=== PATIENT | female | born 1965 | race Caucasian/White ===

== ENCOUNTER 2017-01-15 20:19 | Emergency (ER) | payer OTHER ==
[2017-01-15] MEDS: 0.9 % SODIUM CHLORIDE 1,000 ML IV ONE (20:35)
[2017-01-15] MEDS: ONDANSETRON HCL/PF 4 MG/ 2ML VIAL IVP ONE (20:36)
[2017-01-15 20:47] LABS: BASOPHILS % 0.8 (0.0-1.5); EOSINOPHILS % 2.9 % (0.0-6.8); MEAN CORPUSCULAR HEMOGLOBIN 31.6 pg (28.0-34.0); MEAN CORPUSCULAR VOLUME 88.9 fl (80.0-100.0); MONOCYTES % 4.9 % (0.0-11.0); NEUTROPHILS # 4.4 # k/uL (1.4-7.7)
[2017-01-15 20:48] VITALS: BP 105/77
[2017-01-15 20:57] LABS: eGFR (African) > 60; eGFR (Non-African) > 60
--- NOTE | 2017-01-15 23:39 | ED Physician Documentation ---
Syncope/Near Syncope - HISTORIAN Historian: patient - HPI Stated Complaint: Dizziness/Nausea Chief Complaint: Syncope Additional Information: fixing super got sweaty diaphoretic felt warm and wierd stood front air conditioner felt worse sat diwb nausea no emesis around 1900hrs came to the ed sig pos orthostatics Witnessed: Yes Position at Time of Episode: sitting, standing Symptoms Prior to Episode: light-headed, nausea Character of Events(s): denies: lost consciousness, became unresponsive Symptoms after Event: denies: confused after event, incontinent of urine Location of Injury: none Associated Symptoms: none - ROS CONST: denies: recent illness MS/SKIN/LYMPH: denies: joint pain, leg swelling, rash NEURO/PSYCH: anxiety. 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 IBS htn lo thryoid) PE Risk Factors: hypertension Surgeries/Procedures: none Allergies/Adverse Reactions: Allergies Allergy/AdvReac Type Severity Reaction Status Date / Time No Known Allergies Allergy Verified 01/15/17 20:38 Home Medications: Ambulatory Orders Medication Instructions Recorded buPROPion [Wellbutrin Sr] 150 mg PO DAILY 05/21/13 Albuterol Sulfate [Ventolin Hfa] 2 puff IH BID PRN 07/10/15 Sertraline HCl [Zoloft] 100 mg PO DAILY 07/10/15 Fluticasone Propionate [Flovent 1 puff IH Q12 03/23/16 Hfa] Levothyroxine Sodium [Synthroid] 75 mcg PO 07 03/23/16 Medroxyprogesterone Acetate 400 mg IM DIRECTED 03/23/16 [Depo-Provera] Pantoprazole Sodium [Protonix] 40 mg PO 0700 03/23/16 Ranitidine HCl 300 mg PO D 03/23/16 Ropinirole HCl [Requip Xl] 4 mg PO HS 03/23/16 traZODone HCL [Desyrel] 50 mg PO HS 03/23/16 - SOCIAL HX Smoking History: less than 1 pack/day Alcohol Use: none Drug Use: none - FAMILY HX Family History: denies: sudden cardiac - VITAL SIGNS Vital Signs: Vital Signs Temp Pulse Resp BP Pulse Ox 98.1 F 75 18 121/75 98 01/15/17 20:20 01/15/17 22:00 01/15/17 20:20 01/15/17 20:25 01/15/17 22:00 - REVIEWED ASSESSMENTS Nursing Assessment Reviewed: Yes Vitals Reviewed: Yes ED Results Lab/Radiology - Lab Results Lab Results: Lab Results 01/15/17 01/15/17 20:33 20:33 WBC 7.70 K/ul K/ul (4.00-12.00) RBC 4.74 M/ul M/ul (3.90-5.20) Hgb 15.0 g/dL g/dL (12.0-16.0) Hct 42.2 % % (34.5-46.5) MCV 88.9 fl fl (80.0-100.0) MCH 31.6 pg pg (28.0-34.0) MCHC 35.5 g/dL g/dL (30.0-36.0) RDW 13.4 % % (11.3-14.3) Plt Count 202 K/mm3 K/mm3 (130-400) Neut % (Auto) 56.7 % % (39.0-79.0) Lymph % (Auto) 33.0 % % (16.0-50.0) [place] % (Auto) 4.9 % % (0.0-11.0) Eos % (Auto) 2.9 % % (0.0-6.8) Baso % (Auto) 0.8 (0.0-1.5) Neut # (Auto) 4.4 # k/uL # k/uL (1.4-7.7) Lymph # (Auto) 2.6 # k/uL # k/uL (0.6-4.0) [place] # (Auto) 0.4 # k/uL # k/uL (0.0-0.9) Eos # (Auto) 0.2 # k/uL # k/uL (0.0-0.6) Baso # (Auto) 0.1 # k/uL # k/uL (0.0-0.5) Reactive Lymphs % 1.7 % % (0.0-5.0) Reactive Lymphs # 0.1 # k/uL # k/uL (0.0-0.8) Sodium 137 mmol/L mmol/L (136-145) Potassium 3.9 mmol/L mmol/L (3.5-5.0) Chloride 105 mmol/L mmol/L (98-110) Carbon Dioxide 25 mmol/L mmol/L (20-32) BUN 8 mg/dL L mg/dL (10-26) Creatinine 0.9 mg/dL mg/dL (0.4-1.5) Estimated Creat Clear 130 Est GFR ( Amer) > 60 (60 - ) Est GFR (Non-Af Amer) > 60 (60 - ) Glucose 95 mg/dL mg/dL (70-99) Calcium 10.2 mg/dL mg/dL (8.5-10.5) Total Bilirubin 0.4 mg/dL mg/dL (0.2-1.2) AST 17 U/L U/L (0-41) ALT 17 U/L U/L (0-45) Alkaline Phosphatase 79 U/L U/L (46-116) Total Protein 8.0 g/dL g/dL (6.0-8.5) Albumin 4.8 g/dL g/dL (3.0-5.5) - Orders Orders: ED Orders Category Date Time Status Continuous EKG monitoring Q1H Care 01/15/17 20:34 Active Continuous Pulse Oximetry Q1H Care 01/15/17 20:34 Active Orthostatics NOW Care 01/15/17 20:[address] IV Lock 1T Care 01/15/17 20:33 Active CBC/PLATELET/DIFF Routine Lab 01/15/17 20:33 Completed CMP Routine Lab 01/15/17 20:33 Completed 0.9 % Sodium Chloride [Normal Saline] 1,000 ml Med 01/15/17 20:33 Discontinued IV Q1H Chem Sticks Med 01/15/17 20:33 Discontinued 1 each MC NOW ONE Ondansetron HCl/Pf [Zofran 4 mg/2 ml] Med 01/15/17 20:33 Discontinued 4 mg IVP NOW ONE EKG WITH COMPARISON Stat Ther 01/15/17 20:33 Ordered Syncope Physical Exam - Physical Exam General Appearance: mild distress, moderate distress EENT: nml eye inspection Neck/Back: neck supple, non-tender Respiratory: no resp distress, chest non-tender, breath sounds normal CVS: reg rate & rhythm, heart sounds normal Abdomen: non-tender, no distention Skin: diaphoresis Extremities: normal range of motion, no evidence of injury, no edema - Neuro/Psych Higher Functions: alert, oriented x3, no evidence of acute CVA, mood/affect nml Sensorimotor: nml motor response, nml sensory response (positive orhtostatics- see nurse note) Discharge Clincal Impression: dehycration near syncope Referrals: Primary Doctor,No [Primary Care Provider] - 2 Days Home Medications: Ambulatory Orders buPROPion [Wellbutrin Sr] 150 mg PO DAILY 05/21/13 Albuterol Sulfate [Ventolin Hfa] 2 puff IH BID PRN 07/10/15 Sertraline HCl [Zoloft] 100 mg PO DAILY 07/10/15 Fluticasone Propionate [Flovent Hfa] 1 puff IH Q12 03/23/16 Levothyroxine Sodium [Synthroid] 75 mcg PO 07 03/23/16 Medroxyprogesterone Acetate [Depo-Provera] 400 mg IM DIRECTED 03/23/16 Pantoprazole Sodium [Protonix] 40 mg PO 0700 03/23/16 Ranitidine HCl 300 mg PO D 03/23/16 Ropinirole HCl [Requip Xl] 4 mg PO HS 03/23/16 traZODone HCL [Desyrel] 50 mg PO HS 03/23/16 Condition: Good Disposition: 01 HOME, SELF-CARE Decision to Admit: NO Decision Time: 23:39
== END 2017-01-15 23:45 | disposition home or self-care (01) ==
LOC: ED 20:19
DX: R55 Syncope and collapse (principal); E86.0 Dehydration
CPT/HCPCS: 80053; 85025; 96361; 96374; 99283; J2405; J7030; S1016

== ENCOUNTER 2017-02-28 08:26 | Emergency (ER) | payer OTHER ==
[2017-02-28] MEDS ORDERED: Lidocaine 2%Visc 15ml 20 MG/ML UDC ONE (08:45)
[2017-02-28] MEDS ORDERED: MAGNESIUM HYDROXIDE/AL HYDROX 30 ML UDC PO ONE (08:45)
[2017-02-28] MEDS: MAG HYDROX/AL HYDROX/SIMETH 30 ML, Lidocaine 2%Visc 15ml 20 MG, PHENobarb/HYOSCY/ATROPI... PO ONE ×3 (08:48)
[2017-02-28] MEDS: DICYCLOMINE HCL 10 MG/ML VIAL IM ONE (08:55)
[2017-02-28] MEDS: 0.9 % SODIUM CHLORIDE 1,000 ML IV ONE (08:56)
[2017-02-28 09:06] LABS: BASOPHILS % 0.8 (0.0-1.5); EOSINOPHILS % 2.4 % (0.0-6.8); MEAN CORPUSCULAR HEMOGLOBIN 30.9 pg (28.0-34.0); MEAN CORPUSCULAR VOLUME 89.3 fl (80.0-100.0); NEUTROPHILS # 3.4 # k/uL (1.4-7.7)
[2017-02-28 09:25] LABS: eGFR (African) > 60; eGFR (Non-African) > 60
[2017-02-28] MEDS: HYOSCYAMINE SULFATE 0.125 MG TAB.SUBL SL ONE (09:27)
[2017-02-28] MEDS ORDERED: PANTOPRAZOLE SODIUM INJ. 40 MG VIAL ONE (09:50)
[2017-02-28] MEDS: PANTOPRAZOLE SODIUM 40 MG in 0.9 % SODIUM CHLORIDE 50 ML IV SCH (09:57)
--- NOTE | 2017-02-28 10:17 | ED Physician Documentation ---
Abdominal Pain - HISTORIAN Historian: patient - HPI Stated Complaint: severe abd pain Chief Complaint: Abdominal Pain Additonal Information: sharp, upper abdominal pain, intermittant since 01/31/17, episode started today, antacids not helping, planned EGD on 03/03/17 Onset: hours (2) Duration: constant Timing: still present Context: denies: out of country travel, bad food, recent trauma Severity: moderate Quality: sharp Front/Back of Body, Lg (Color): 1 - pain Associated Symptoms: nausea, loss of appetite. denies: fever, chills, vomiting , coffee ground emesis, bloody emesis, diarrhea, bloody stools, grossly bloody stools, mucous, sweating, chest pain, back pain, neck pain Exacerbated by: nothing Relieved by: nothing Further Comments: no - ROS CONST: no problems GI/: other (hx of pud, similar pain). denies: constipation CVS/RESP: none EYES/ENT: none MS/SKIN/LYMPH: none NEURO/PSYCH: none - SOCIAL HX Smoking History: cigarettes Alcohol Use: none Drug Use: none - FAMILY HX Family History: no significant history - PAST HX Past History: other (pud) Ischemic Bowel Risk Factors: none Other History: other (copd, depression) Surgeries/Procedures: none Immunizations: referred to PCP Home Medications: Ambulatory Orders Medication Instructions Recorded buPROPion [Wellbutrin Sr] 150 mg PO DAILY 05/21/13 Albuterol Sulfate [Ventolin Hfa] 2 puff IH BID PRN 07/10/15 Sertraline HCl [Zoloft] 100 mg PO DAILY 07/10/15 Fluticasone Propionate [Flovent 1 puff IH Q12 03/23/16 Hfa] Levothyroxine Sodium [Synthroid] 75 mcg PO 07 03/23/16 Medroxyprogesterone Acetate 400 mg IM DIRECTED 03/23/16 [Depo-Provera] Pantoprazole Sodium [Protonix] 40 mg PO 0700 03/23/16 Ranitidine HCl 300 mg PO D 03/23/16 Ropinirole HCl [Requip Xl] 4 mg PO HS 03/23/16 traZODone HCL [Desyrel] 50 mg PO HS 03/23/16 Allergies/Adverse Reactions: Allergies Allergy/AdvReac Type Severity Reaction Status Date / Time No Known Allergies Allergy Verified 02/28/17 08:42 - VITAL SIGNS Vital Signs: Vital Signs Temp Pulse Resp BP Pulse Ox 80 20 115/77 98 02/28/17 08:27 02/28/17 08:27 02/28/17 08:27 02/28/17 08:27 - REVIEWED ASSESSMENTS Nursing Assessment Reviewed: Yes Vitals Reviewed: Yes Progress - Results/Orders Results/Orders: cbc, cmp, amylase, ua, pt/ptt/inr, abd/pelvis ct ordered - Progress Progress: t. given 40 mg protonix ivp in 1 liter ns bolus, gi cocktail and 0.25 mg hyoscyamine p.o. in er Critical Care Note - Critical Care Note Total Time (mins): 0 ED Results Lab/Radiology - Lab Results Lab Results: Lab Results 02/28/17 02/28/17 02/28/17 09:00 09:00 09:00 WBC 6.00 K/ul K/ul (4.00-12.00) RBC 4.67 M/ul M/ul (3.90-5.20) Hgb 14.4 g/dL g/dL (12.0-16.0) Hct 41.7 % % (34.5-46.5) MCV 89.3 fl fl (80.0-100.0) MCH 30.9 pg pg (28.0-34.0) MCHC 34.6 g/dL g/dL (30.0-36.0) RDW 13.6 % % (11.3-14.3) Plt Count 179 K/mm3 K/mm3 (130-400) Neut % (Auto) 56.3 % % (39.0-79.0) Lymph % (Auto) 35.3 % % (16.0-50.0) [place] % (Auto) 4.0 % % (0.0-11.0) Eos % (Auto) 2.4 % % (0.0-6.8) Baso % (Auto) 0.8 (0.0-1.5) Neut # (Auto) 3.4 # k/uL # k/uL (1.4-7.7) Lymph # (Auto) 2.1 # k/uL # k/uL (0.6-4.0) [place] # (Auto) 0.2 # k/uL # k/uL (0.0-0.9) Eos # (Auto) 0.2 # k/uL # k/uL (0.0-0.6) Baso # (Auto) 0.0 # k/uL # k/uL (0.0-0.5) Reactive Lymphs % 1.2 % % (0.0-5.0) Reactive Lymphs # 0.1 # k/uL # k/uL (0.0-0.8) PT 9.7 Seconds Seconds (9.4-11.6) INR 0.92 (0.9-1.2) Sodium 139 mmol/L mmol/L (136-145) Potassium 3.9 mmol/L mmol/L (3.5-5.0) Chloride 106 mmol/L mmol/L (98-110) Carbon Dioxide 27 mmol/L mmol/L (20-32) BUN 6 mg/dL L mg/dL (10-26) Creatinine 0.8 mg/dL mg/dL (0.4-1.5) Estimated Creat Clear 135 Est GFR ( Amer) > 60 (60 - ) Est GFR (Non-Af Amer) > 60 (60 - ) Glucose 149 mg/dL H mg/dL (70-99) Calcium 10.3 mg/dL mg/dL (8.5-10.5) Total Bilirubin 0.3 mg/dL mg/dL (0.2-1.2) AST 20 U/L U/L (0-41) ALT 23 U/L U/L (0-45) Alkaline Phosphatase 61 U/L U/L (46-116) Total Protein 6.6 g/dL g/dL (6.0-8.5) Albumin 4.4 g/dL g/dL (3.0-5.5) Amylase 45 U/L U/L (20-104) - Radiology Radiology Impressions: ct abdomen/pelvis shows edematous gallbladder, no stones, no bowel pathology, no masses - Orders Orders: ED Orders Category Date Time Status Place IV Lock 1T Care 02/28/17 08:[address] ABD & PELVIS W/O CON Stat Exams 02/28/17 Taken AMYLASE Routine Lab 02/28/17 09:00 Completed CBC/PLATELET/DIFF Routine Lab 02/28/17 09:00 Completed CMP Routine Lab 02/28/17 09:00 Completed PT-INR Routine Lab 02/28/17 09:00 Completed URINALYSIS Routine Lab 02/28/17 Ordered 0.9 % Sodium Chloride [Normal Saline] 1,000 ml Med 02/28/17 08:48 Discontinued IV Q1H Dicyclomine HCl [Bentyl] Med 02/28/17 08:48 Discontinued 20 mg IM NOW ONE Hyoscyamine Sulfate [Oscimin Sl] Med 02/28/17 09:26 Discontinued 0.25 mg SL 1T ONE Lidocaine 2%Visc 15ml [Xylocaine] Med 02/28/17 08:45 Discontinued 300 mg .ROUTE .STK-MED ONE Mag Hydrox/Al Hydrox/Simeth [Mylanta] 30 ml Med 02/28/17 08:48 Discontinued Lidocaine 2%Visc 15ml [Xylocaine] 20 mg PHENobarb/HYOSCY/ATROPINE/SCOP [] 10 ml PO NOW Magnesium Hydroxide/Al Hydrox [Maalox] Med 02/28/17 08:45 Discontinued 30 ml PO .STK-MED ONE Pantoprazole Sodium [Protonix] Med 02/28/17 09:50 Discontinued 40 mg .ROUTE .STK-MED ONE Pantoprazole Sodium [Protonix] 40 mg Med 02/28/17 10:00 Ordered 0.9 % Sodium Chloride [Sodium Chloride] 50 ml IV DAILY Abdominal Pain Physical Exam - Physical Exam General Appearance: alert, moderate distress EENT: eye inspection normal, ENT inspection normal, pharynx normal, no signs of dehydration, MIGUEL, no nystagmus, TM's nml NECK: normal inspection, thyroid normal, supple RESPIRATORY: no resp distress, chest non-tender, breath sounds normal CVS: reg rate & rhythm, heart sounds normal, equal pulses ABDOMEN: soft, no organomegaly, tenderness (generalized, worse in upper quadrants, greatest in epigastrium), decreased BS BACK: normal inspection, no CVA tenderness SKIN: warm/dry, normal color EXTREMITIES: non-tender, normal range of motion, no evidence of injury, no edema NEURO: oriented X3, CN's nml as tested, motor nml, sensation nml, mood/affect nml Vital Signs: Vital Signs Temp Pulse Resp BP Pulse Ox 80 20 115/77 98 02/28/17 08:27 02/28/17 08:27 02/28/17 08:27 02/28/17 08:27 Discharge Clincal Impression: Cholecystitis Referrals: Primary Doctor,No [Primary Care Provider] - 2 Days Additional Instructions: Keep your appointment on Friday for your EGD Home Medications: Ambulatory Orders buPROPion [Wellbutrin Sr] 150 mg PO DAILY 05/21/13 Albuterol Sulfate [Ventolin Hfa] 2 puff IH BID PRN 07/10/15 Sertraline HCl [Zoloft] 100 mg PO DAILY 07/10/15 Fluticasone Propionate [Flovent Hfa] 1 puff IH Q12 03/23/16 Levothyroxine Sodium [Synthroid] 75 mcg PO 07 03/23/16 Medroxyprogesterone Acetate [Depo-Provera] 400 mg IM DIRECTED 03/23/16 Pantoprazole Sodium [Protonix] 40 mg PO 0700 03/23/16 Ranitidine HCl 300 mg PO D 03/23/16 Ropinirole HCl [Requip Xl] 4 mg PO HS 03/23/16 traZODone HCL [Desyrel] 50 mg PO HS 03/23/16 Comments: Home with added Carafate 1 gram ac and hs, zofran 4 mg qid prn and hyoscyamine 0.125 mg 1 p.o. ac and hs. Condition: Stable Disposition: 01 HOME, SELF-CARE Decision to Admit: NO Decision Time: 10:54
[2017-02-28 11:04] VITALS: BP 98/67
--- NOTE | 2017-02-28 14:45 | Diagnostic Imaging Report ---
LINDA ESPOSITO [facility] [address] [facility] [address] [place], [place]. [address] Report Submission Date: Feb 28, 2017 9:25:06 AM CDT Patient Study Name: MICHELET SALEH Date: Feb 28, 2017 9:08:35 AM CDT Modality Type: CT\SR Gender: F Description: CT ABD & PELVIS W/O CO : 65 Institution: [facility] Physician: LINDA ESPOSITO CT of the abdomen and pelvis without contrast CLINICAL HISTORY: Abdominal pain for 2-3 months worsening the last 2 days TECHNIQUE: CT of the abdomen and pelvis is performed without oral or intravenous administration of contrast. Sagittal and coronal reconstructions are performed by the technologist. FINDINGS: Visualized lung bases are clear. Liver and spleen demonstrate normal attenuation without focal defect. Gallbladder wall is thickened and edematous suggesting cholecystitis. There is no significant stranding in the adjacent fat. There is no pancreatic or adrenal abnormality. The kidneys are of normal size, shape and position. There is no retroperitoneal mass or significant adenopathy. Appendix is visualized and is within normal limits. Structures related to the gastrointestinal tract are unremarkable. Uterus and adnexal structures are within normal limits. Bladder is normally distended. IMPRESSION: Gallbladder wall thickening and edema consistent with cholecystitis. Negative appendix. Electronically signed on Feb 28, 2017 9:25:06 AM CDT by: Miller FARRELL
== END 2017-02-28 11:01 | disposition home or self-care (01) ==
LOC: ED 08:26
DX: K81.9 Cholecystitis, unspecified (principal)
CPT/HCPCS: 74176; 80053; 82150; 85025; 85610; A9270; J0500; J7030; 96360; 96372; 99283; S1016

== ENCOUNTER 2017-06-12 16:36 | Emergency (ER) | payer OTHER ==
--- NOTE | 2017-06-12 16:42 | ED Physician Documentation ---
General Adult - HISTORIAN Historian: patient, other (family) - HPI Stated Complaint: fall down 30 ft embankment Chief Complaint: General Adult Onset: minutes Timing: still present Severity: moderate Further Comments: yes (Pt is a 52 yo female [place], down an embankment about 30 ft. Pt rolled head over heals and injured her face and L ankle. Pt was dazed and may have lost consciousnes briefly. Pt has no neck pain.) - ROS CONST: no problems EYES/ENT: other (facial pain) CVS/RESP: none GI/: none MS/SKIN/LYMPH: ankle swelling (L ankle pain/swelling) - PAST HX Past History: other (depression, fibromyalgia, GERD, hypothyroidism) Allergies/Adverse Reactions: Allergies Allergy/AdvReac Type Severity Reaction Status Date / Time No Known Allergies Allergy Verified 06/12/17 17:00 Home Medications: Ambulatory Orders Medication Instructions Recorded buPROPion [Wellbutrin Sr] 150 mg PO DAILY 05/21/13 Albuterol Sulfate [Ventolin Hfa] 2 puff IH BID PRN 07/10/15 Sertraline HCl [Zoloft] 100 mg PO DAILY 07/10/15 Fluticasone Propionate [Flovent 1 puff IH Q12 03/23/16 Hfa] Levothyroxine Sodium [Synthroid] 75 mcg PO 07 03/23/16 Medroxyprogesterone Acetate 400 mg IM DIRECTED 03/23/16 [Depo-Provera] Pantoprazole Sodium [Protonix] 40 mg PO 0700 03/23/16 Ranitidine HCl 300 mg PO D 03/23/16 Ropinirole HCl [Requip Xl] 4 mg PO HS 03/23/16 traZODone HCL [Desyrel] 50 mg PO HS 03/23/16 - SOCIAL HX Smoking History: cigarettes - FAMILY HX Family History: No - VITAL SIGNS Vital Signs: Vital Signs Temp Pulse Resp BP Pulse Ox 98/67 02/28/17 11:01 - REVIEWED ASSESSMENTS Nursing Assessment Reviewed: Yes Vitals Reviewed: Yes Progress - Progress Progress: CT head: neg CT facial bones: neg x-ray L ankle: no fracture Air Splint Ibuprofen 200 mg. Take 3 tablets by mouth every 8 hrs with food. Rx [place] (5/325). Take 1 or 2 tablets by mouth every 6 hrs as needed for moderate to severe pain. Crutches prn ED Results Lab/Radiology - Orders Orders: ED Orders Category Date Time Status Place IV Lock 1T Care 06/12/17 16:37 Ordered ANKLE 3 VIEWS OR MORE [RAD] Stat Exams 06/12/[address] BRAIN W CONTRAST Stat Exams 06/12/[address] MAXILLOFACIAL W/O DYE Stat Exams 06/12/17 Ordered CBC/PLATELET/DIFF Routine Lab 06/12/17 Ordered CMP Routine Lab 06/12/17 Ordered General Adult Physical Exam - PHYSICAL EXAM GENERAL APPEARANCE: moderate distress EENT: eye inspection normal, pharynx normal, other (dried blood R nares) NECK: normal inspection, supple RESPIRATORY: no resp distress, chest non-tender, breath sounds normal CVS: reg rate & rhythm, heart sounds normal ABDOMEN: soft, no organomegaly, normal bowel sounds BACK: normal inspection, no CVA tenderness SKIN: other (facial abrasion R cheek) EXTREMITIES: other (L ankle swelling, tenderness) NEURO: oriented X3, CN's nml as tested, motor nml, sensation nml Discharge Clincal Impression: L ankle sprain Referrals: Primary Doctor,No [Primary Care Provider] - Condition: Good Disposition: 01 HOME, SELF-CARE Decision to Admit: NO Decision Time: 17:44
[2017-06-12] MEDS ORDERED: HYDROcodone /APAP 5/325 1 EACH TABLET PO ONE ×2 (16:46→17:40)
--- NOTE | 2017-06-12 17:31 | Diagnostic Imaging Report ---
ARIANNE BATISTA [facility] [address] [facility] [address] [place] [address]. [address] Report Submission Date: Jun 12, 2017 5:29:14 PM TALENT ADVISOR Patient Study Name: MICHELET SALEH Date: Jun 12, 2017 5:07:20 PM TALENT ADVISOR Modality Type: CT\SR Gender: F Description: CT BRAIN W/O CONTRAST : 65 Institution: [facility] Physician: ARIANNE BATISTA CT head without contrast History: Fall Technique: Images through the brain were obtained without contrast. Findings: No mass, midline shift, obstructive hydrocephalus or acute intracranial hemorrhage is present. The ventricles are normal. No extraaxial fluid collection is identified. Impression: No acute intracranial process. Electronically signed on Jun 12, 2017 5:29:14 PM TALENT ADVISOR by: Alverto FARRELL
[2017-06-12 17:39] LABS: BASOPHILS % 0.7 (0.0-1.5); EOSINOPHILS % 2.3 % (0.0-6.8); MEAN CORPUSCULAR HEMOGLOBIN 31.4 pg (28.0-34.0); MEAN CORPUSCULAR VOLUME 90.7 fl (80.0-100.0); MONOCYTES % 5.1 % (0.0-11.0)
[2017-06-12 17:43] LABS: eGFR (African) > 60; eGFR (Non-African) > 60
--- NOTE | 2017-06-12 17:47 | Diagnostic Imaging Report ---
ARIANNE BATISTA [facility] [address] [facility] [address] [address] Report Submission Date: Jun 12, 2017 5:36:33 PM SUPERVISOR PHOSPHATIC FERTILIZER Patient Study Name: MICHELET SALEH Date: Jun 12, 2017 5:21:15 PM SUPERVISOR PHOSPHATIC FERTILIZER Modality Type: CR Gender: F Description: LOWER EXTREMITY : 65 Institution: [facility] Physician: ARIANNE BATISTA Left ankle, 3 views History: Fall, injury, pain Findings: No fracture, dislocation or abnormal bone production or destruction is identified. Impression: No osseous abnormality. Electronically signed on Jun 12, 2017 5:36:33 PM SUPERVISOR PHOSPHATIC FERTILIZER by: Alverto FARRELL
--- NOTE | 2017-06-12 17:48 | Diagnostic Imaging Report ---
ARIANNE BATISTA [facility] [address] [facility] [address] [place], [place]. [address] Report Submission Date: Jun 12, 2017 5:33:06 PM AUTO TRAVEL COUNSELOR Patient Study Name: MICHELET SALEH Date: Jun 12, 2017 5:11:10 PM AUTO TRAVEL COUNSELOR Modality Type: CT\SR Gender: F Description: CT MAXILLOFACIAL W/O D : 65 Institution: [facility] Physician: ARIANNE BATISTA CT facial bones History: Fall, injury Technique: Images through the facial bones were obtained without contrast. Multiplanar reconstructions were performed. Findings: No fracture or abnormal bone production or destruction is identified. The mandible, zygomatic arches and pterygoid plates are normal. Paranasal sinuses are well developmental aerated. The orbits and globes are normal. Impression: Normal. Electronically signed on Jun 12, 2017 5:33:06 PM AUTO TRAVEL COUNSELOR by: Alverto FARRELL
[2017-06-12 18:00] VITALS: BP 107/72
== END 2017-06-12 17:59 | disposition home or self-care (01) ==
LOC: ED 16:36
DX: S93.402A Sprain of unspecified ligament of left ankle, initial encounter (principal); W19.XXXA Unspecified fall, initial encounter; Y93.9 Activity, unspecified; Y99.9 Unspecified external cause status
CPT/HCPCS: 70460; 70486; 73610; 80053; 85025; A9270; L4350; 99283; S1016

== ENCOUNTER 2017-06-18 10:21 | Outpatient (CLI) | payer OTHER ==
--- NOTE | 2017-06-18 11:43 | Diagnostic Imaging Report ---
Elijah GOMEZ [facility] [address] [address] Report Submission Date: Jun 18, 2017 11:36:05 AM OUTDOOR ADVENTURE LEADER Patient Study Name: MICHELET SALEH Date: Jun 18, 2017 10:41:14 AM OUTDOOR ADVENTURE LEADER Modality Type: CR Gender: F Description: LOWER EXTREMITY : 65 Institution: [facility] Physician: Elijah GOMEZ Examination: Plain film ankle History: Ankle discomfort. Findings: 3 views of the ankle demonstrates normal cortical margins. No fracture or dislocation. Talar dome is intact. Llewellyn stress imaging obtained - slight widening of the medial joint space. Small inferior calcaneal spur. No soft tissue swelling. Small joint effusion. Impression: No acute osseous process. Possible medial joint space widening. If there is a concern for ligamentous injury, recommend obtaining MRI. Electronically signed on Jun 18, 2017 11:36:05 AM FLORINDA by: Damaso FARRELL
--- NOTE | 2017-06-18 11:44 | Diagnostic Imaging Report ---
Elijah GOMEZ [facility] [address] [facility] [address] Report Submission Date: Jun 18, 2017 11:37:05 AM STAFF PHARMACIST HOSPITAL Patient Study Name: MICHELET SALEH Date: Jun 18, 2017 10:50:38 AM STAFF PHARMACIST [facility]PITAL Modality Type: CR Gender: F Description: LOWER EXTREMITY : 65 Institution: [facility] Physician: Elijah GOMEZ Examination: Plain film tibia/fibula History: Injury Comparison exams: None available Findings: 2 views of the tibia fibula demonstrates normal cortical margins. No evidence for fracture line. No soft tissue abnormality. Impression: No acute osseous abnormality. Electronically signed on Jun 18, 2017 11:37:05 AM [facility]FF [facility]ARMAC[facility] by: Damaso FARRELL
== END 2017-06-18 10:22 ==
LOC: RAD 10:21
PROVIDERS: ATTEND Family Medicine
DX: S93.402A Sprain of unspecified ligament of left ankle, initial encounter (principal); S93.439A Sprain of tibiofibular ligament of unspecified ankle, initial encounter; S82.832A Other fracture of upper and lower end of left fibula, initial encounter for closed fracture
CPT/HCPCS: 73590; 73610

== ENCOUNTER 2017-09-13 20:05 | Emergency (ER) | payer OTHER ==
--- NOTE | 2017-09-13 20:11 | ED Physician Documentation ---
Sore Throat/Dental Pain - HISTORIAN Historian: patient - HPI Stated Complaint: throat pain Chief Complaint: Sore Throat Onset: other (over a month ) Context: Other (she has been told this is due to reflux ). denies: Foreign Body , Possible Infection Associated Symptoms: sore throat. denies: fever, unable to swallow, cough Worsened By: denies: heat, cold, nothing Further Comments: yes (She states over a month she has had sore throat and was treated for sinus infection one week ago. States she followed back up with her PCP this week and she was told this sore throat was from reflux and her meds were changed. She started Zantac two days ago. No new symptoms she wanted to make sure not strep. No fever) - ROS CONST: recent illness CVS/RESP: shortness of breath GI/: denies: nausea, vomiting MS/SKIN/LYMPH: denies: rash NEURO/PSYCH: anxiety - PAST HX Past History: other (reflux, COPD) Immunizations: UTD Allergies/Adverse Reactions: Allergies Allergy/AdvReac Type Severity Reaction Status Date / Time No Known Allergies Allergy Verified 09/13/17 20:25 Home Medications: Ambulatory Orders Medication Instructions Recorded buPROPion [Wellbutrin Sr] 150 mg PO DAILY 05/21/13 Albuterol Sulfate [Ventolin Hfa] 2 puff IH BID PRN 07/10/15 Sertraline HCl [Zoloft] 100 mg PO DAILY 07/10/15 Fluticasone Propionate [Flovent 1 puff IH Q12 03/23/16 Hfa] Levothyroxine Sodium [Synthroid] 75 mcg PO 07 03/23/16 Medroxyprogesterone Acetate 400 mg IM DIRECTED 03/23/16 [Depo-Provera] Pantoprazole Sodium [Protonix] 40 mg PO 0700 03/23/16 Ranitidine HCl 300 mg PO D 03/23/16 Ropinirole HCl [Requip Xl] 4 mg PO HS 03/23/16 traZODone HCL [Desyrel] 50 mg PO HS 03/23/16 - SOCIAL HX Smoking History: cigarettes Alcohol Use: none Drug Use: none - FAMILY HX Family History: No - VITAL SIGNS Vital Signs: Vital Signs Temp Pulse Resp BP Pulse Ox 107/72 06/12/17 17:59 - REVIEWED ASSESSMENTS Nursing Assessment Reviewed: Yes Vitals Reviewed: Yes Sore throat Physical Exam - EXAM General Appearance: no acute distress, alert Head/Neck: head nml inspection, no lymphadenopathy, other (POSTERIOR PHARYNX MILDLY RED. NO SWELLING ) Mouth/Throat: no air way problems, no thrush, pharyngeal erythema (MILD ), hoarse voice Ear/Nose: nml inspection Respiratory: no resp. distress, breath sounds nml CVS: reg. rate & rhythm, heart sounds nml Abdomen: soft, normal bowel sounds Extremities: non-tender Skin: warm/dry, normal color Neuro/Psych: oriented x3, mood/affect nml Discharge Clincal Impression: Reflux esophagitis Referrals: Primary Doctor,No [Primary Care Provider] - 2 Days Additional Instructions: 1. Continue zantac 2. Avoid foods causing reflux 3. Sleep with head elevated 4. Continue use of inhalers 5. Medrol dose pack as ordered 6. Follow up with PCP in 2-4 days 7. Return to ER for concerns Condition: Stable Disposition: 01 HOME, SELF-CARE Decision to Admit: NO Date of Decison to Admit: 09/13/17 Decision Time: 20:33
[2017-09-13 23:08] VITALS: BP 133/86
== END 2017-09-13 20:37 | disposition home or self-care (01) ==
LOC: ED 20:05
DX: K21.0 Gastro-esophageal reflux disease with esophagitis (principal); F17.210 Nicotine dependence, cigarettes, uncomplicated
CPT/HCPCS: 87070; 87880; 99282

== ENCOUNTER 2018-07-27 07:24 | Day surgery (SDC) | payer OTHER ==
[2018-07-27] MEDS ORDERED: PROPOFOL 200 MG/20 ML VIAL IV ONE (08:48)
[2018-07-27] MEDS ORDERED: LACTATED RINGERS 1,000 ML IV.SOLN IV ONE (08:48)
[2018-07-27] MEDS ORDERED: LIDOCAINE HCL 2% PF 100MG/5ML VIAL IJ ONE (08:48)
--- NOTE | 2018-07-27 09:08 | GI Report ---
REFERRING PHYSICIAN: Dr. Herminio Price PAPER BAG MACHINE OPERATOR: Jean Marie Stratton MD PROCEDURE MEDICATION: Propofol as per anesthesia. INDICATIONS: This is a 53-year-old woman who has had life-long heartburn and reflux and it never goes away. She has trouble in the daytime and at nighttime. She uses 2 pillows but does not have her bed elevated. She has been on sucralfate up to 4 times a day, pantoprazole daily, and also ranitidine. She is on a number of antidepressant medications. Unfortunately, she continues and has been a smoker for 35 years and presently smokes a half-a-pack a day. She needs a CPAP but states she cannot afford it but does continue to smoke. There is a strong family history of lung cancer and emphysema. Patient is 5 feet 8 inches and weighs 197 and carries that weight centrally. On exam before the procedure, lungs, she has prolong expiratory phase of breathing and scattered rhonchi. Abdomen is obese and mild epigastric tenderness to palpation. PROCEDURE PERFORMED: Endoscopy and biopsies. PROCEDURE: An Olympus video endoscope is passed through the esophagus under direct visualization. She has at least grade 2 esophagitis of the GE junction. No obvious Peters's. We did take biopsies for pathology. The GE junction is lax. I do not see a large hernia present. She does have diffuse gastritis. Biopsies were taken in the antrum for pathology. Duodenal bulb and first and second part of the duodenum exam were normal. Patient tolerated the procedure well. FINDINGS: 1. Esophagitis. 2. Gastritis. RECOMMENDATIONS: 1. I discussed with the patient that it is unlikely to get better unless she is willing to discontinue tobacco usage. 2. She needs to get her bed elevated 3 inches with boards or blocks. 3. Losing weight of even 10 or 15 pounds decreases intragastric pressure. 4. Her PPI should be taken before her first meal and I would take her Carafate particularly at bedtime. 5. Follow up biopsy reports, particularly looking for H. Pylori, and make sure there is not obvious Peters's. cc: Dr. Herminio FARRELL
== END 2018-07-27 09:15 | disposition home or self-care (01) ==
LOC: OPSURG 07:24
PROVIDERS: ATTEND Internal Medicine Gastroenterology
DX: K21.0 Gastro-esophageal reflux disease with esophagitis (principal); K29.70 Gastritis, unspecified, without bleeding; Z72.0 Tobacco use
CPT/HCPCS: 43239; 88305; J2001; J2704; J7120; S1016

== ENCOUNTER 2018-07-30 09:04 | Outpatient (CLI) | payer OTHER ==
[2018-07-30 09:29] LABS: MEAN CORPUSCULAR HEMOGLOBIN 30.5 pg (28.0-34.0)
[2018-07-30 09:30] LABS: BASOPHILS % 0.5 (0.0-1.5); EOSINOPHILS % 3.4 % (0.0-6.8); MONOCYTES % 7.2 % (0.0-11.0); NEUTROPHILS # 2.9 # k/uL (1.4-7.7)
[2018-07-30 09:36] LABS: eGFR (Non-African) > 60
== END 2018-07-30 09:06 ==
LOC: LAB 09:04
PROVIDERS: ATTEND Family Medicine
DX: Z51.81 Encounter for therapeutic drug level monitoring (principal); E03.9 Hypothyroidism, unspecified
CPT/HCPCS: 36415; 80053; 84443; 85025

== ENCOUNTER 2018-08-07 19:22 | Emergency (ER) | payer OTHER | END 2018-08-07 19:48 | disposition home or self-care (01) | LOC: ED 19:22 | DX: H93.8X2 Other specified disorders of left ear (principal) | CPT/HCPCS: 99281; 99282 ==

== ENCOUNTER 2018-08-27 07:45 | Outpatient (CLI) | payer OTHER ==
--- NOTE | 2018-08-27 14:06 | Diagnostic Imaging Report ---
JUAN CARMONA [facility] [address] [facility].[address] [address] Report Submission Date: Aug 27, 2018 8:29:45 AM CONVERSION WORKER Patient Study Name: MICHELET SALEH Date: Aug 27, 2018 7:55:13 AM CONVERSION WORKER Modality Type: US Gender: F Description: US ABDOMEN LIMITED : 65 Institution: [facility] Physician: JUAN CARMONA Examination: Ultrasound abdomen limited History: Ruq pain vomiting at night for 2 weeks Findings: Sonographic evaluation of the right upper quadrant demonstrates the gallbladder without stones or sludge. Incomplete distention. Gallbladder wall measures 2.9 mm. Common bile duct measures 4.1 mm. No intrahepatic biliary dilation. Liver demonstrates normal homogeneous echogenicity. No mass or cyst. Normal flow on color analysis. Right kidney measures 11.0 cm in length. No cortical mass or cyst. No hydronephrosis. Pancreatic region without gross irregularity. Impression: Gallbladder incompletely distended. No gallstone or obstruction. Electronically signed on Aug 27, 2018 8:29:45 AM CONVERSION WORKER by: Damaso FARRELL
== END 2018-08-27 07:47 ==
LOC: RAD 07:45
PROVIDERS: ATTEND Family Medicine
DX: K82.8 Other specified diseases of gallbladder (principal); R10.11 Right upper quadrant pain
CPT/HCPCS: 76705

== ENCOUNTER 2018-09-15 08:53 | Outpatient (CLI) | payer OTHER ==
--- NOTE | 2018-09-15 10:09 | Diagnostic Imaging Report ---
ELIAS RAMIREZ [facility] [address] [facility] [address] [place] [address]. [address] Report Submission Date: Sep 15, 2018 10:00:26 AM SENIOR BENEFITS SPECIALIST Patient Study Name: MICHELET SALEH Date: Sep 15, 2018 9:23:47 AM SENIOR BENEFITS SPECIALIST Modality Type: CT Gender: F Description: CT ABD PELVIS W/ CON : 65 Institution: [facility] Physician: ELIAS RAMIREZ Examination: CT Abdomen/pelvis History: ACID REFLUX AND EPIGASTRIC PAIN WITH NAUSEA AND VOMITING, ESPECIALLY WHEN LAYING FLAT X YEARS Comparison exams: Ultrasound dated 27 August 2018 Technique: CT Abdomen/pelvis with IV protocol. Findings: Liver demonstrates mild diffuse low attenuation. No central lesion. Spleen, adrenals, pancreas, kidneys and gallbladder are without gross irregularity. No gallstone. No suspicious renal calcifications. Ureters are nondilated in their course through the abdomen and pelvis. No central calcifications. Bladder margin within normal limits. Abdominal aorta without aneurysm or peripheral atherosclerotic disease. Cardiac silhouette is not enlarged. No pericardial effusion. Bowel unopacified limiting evaluation. No abnormal dilation. Stool within the large bowel limiting sensitivity. No mesenteric inflammatory changes or free fluid. Appendix is visualized and is without inflammatory changes. Sigmoid diverticula. Osseous structures demonstrate mild degenerative spurring. Lung bases without infiltrate. No effusion. Impression: No acute upper abdominal organ inflammatory process. No abnormal bowel dilation or inflammation. Sigmoid diverticula. Moderate large bowel stool. No gallstone. No suspicious renal calcifications or abnormal ureteric dilation. No lung base consolidation or effusion. Electronically signed on Sep 15, 2018 10:00:26 AM SENIOR BENEFITS SPECIALIST by: Damaso FARRELL
== END 2018-09-15 08:55 ==
LOC: RAD 08:53
PROVIDERS: ATTEND Family Medicine
DX: K21.0 Gastro-esophageal reflux disease with esophagitis (principal); R11.2 Nausea with vomiting, unspecified
CPT/HCPCS: 74177; Q9967

== ENCOUNTER 2018-09-21 07:07 | Day surgery (SDC) | payer OTHER ==
[2018-09-21] MEDS ORDERED: PROPOFOL 200 MG/20 ML VIAL IV ONE (08:48)
[2018-09-21] MEDS ORDERED: LIDOCAINE HCL 2% PF 100MG/5ML VIAL IJ ONE (08:48)
[2018-09-21] MEDS ORDERED: LACTATED RINGERS 1,000 ML IV.SOLN IV ONE (08:48)
--- NOTE | 2018-10-06 13:48 | GI Report ---
]PROCEDURE PERFORMED: Colonoscopy. SURGEON: Juvenal Naranjo M.D., F.A.C.P. INDICATION FOR PROCEDURE: The patient is a 53-year-old referred for colonoscopy. PROCEDURE MEDICATION: Propofol, as per Anesthesia. DESCRIPTION OF PROCEDURE: An Olympus video colonoscope was advanced through the rectum and slowly advanced all the way to the cecum. The appendiceal orifice and terminal ileum were normal. The prep was only fair. In the ascending colon, transverse colon no obvious intraluminal lesions noted. Descending colon: A few scattered diverticula. She does have a very atonic, redundant colon. No other pathology noted. FINDINGS: 1. Diverticular disease, sigmoid colon. 2. Atonic, redundant colon. RECOMMENDATIONS: 1. Increase fiber in the diet. 2. Recommended discontinued tobacco usage. 3. Consider relooking at her colon in 10 years, sooner if clinically indicated. JUVENAL NARANJO M.D., F.A.C.P. RAEGAN/bk R: 10/05/18 Job#: [id number] Cc: Herminio Price M.D. [id number] [facility] [place] [address] Sent via [facility]
== END 2018-09-21 09:27 | disposition home or self-care (01) ==
LOC: OPSURG 07:07
PROVIDERS: ATTEND Internal Medicine Gastroenterology
DX: Z12.11 Encounter for screening for malignant neoplasm of colon (principal); K57.30 Diverticulosis of large intestine without perforation or abscess without bleeding; K59.8 Other specified functional intestinal disorders
CPT/HCPCS: 45378; J2001; J2704; J7120; S1016

== ENCOUNTER 2018-12-27 18:45 | Emergency (ER) | payer OTHER ==
[2018-11-28 16:01] VITALS: BP 120/72
[2019-01-10 17:59] LABS: eGFR (Non-African) > 60
[2019-01-10 18:00] LABS: BASOPHILS % 0.6 % (0.0-1.5); NEUTROPHILS # 6.2 # k/uL (1.4-7.7)
--- NOTE | 2019-01-15 12:18 | Diagnostic Imaging Report ---
FINESSE STOVALL (TOOTH CUTTER) - ER [facility] [address] [address] Report Submission Date: Dec 27, 2018 8:09:18 PM CDT Patient Study Name: MICHELET SALEH Date: Dec 27, 2018 7:47:22 PM CDT Modality Type: DX Gender: F Description: CHEST 2VIEW : 65 Institution: [facility] Physician: FINESSE STOVALL (AMA) - ER Chest PA and lateral views Clinical history: Cough and weakness Normal heart shadow and mediastinum. Clear lungs without acute infiltrate or pleural effusion. Normal bony thorax. Rounded metallic ring is seen in the epigastric region possibly at the GE junction. Impression: No active pulmonary pathology Electronically signed on Dec 27, 2018 8:09:18 PM CDT by: Bird FARRELL
== END 2018-12-27 21:10 ==
LOC: ED 18:45
DX: J44.1 Chronic obstructive pulmonary disease with (acute) exacerbation (principal)
CPT/HCPCS: 36415; 71020; 80053; 83605; 85025; 87040; 94640; 99283; 99284